=== PATIENT | female | born 2000 | race Two or more races ===

== ENCOUNTER 2022-10-01 10:16 | Emergency (ER) | payer OTHER ==
[~2022-10-01] VITALS: Ht 160 cm; Wt 52.2 kg
== END 2022-10-01 11:04 | disposition home or self-care (01) ==
LOC: ER 10:16
DX: N63.10 Unspecified lump in the right breast, unspecified quadrant (principal); B35.9 Dermatophytosis, unspecified; Z88.0 Allergy status to penicillin

== ENCOUNTER 2022-11-09 19:38 | Emergency (ER) | payer OTHER ==
[~2022-11-09] VITALS: Ht 167.6 cm; Wt 52.2 kg
[2022-11-10] MEDS ORDERED: MACRODANTIN100 M1 PO (02:44)
[2022-11-10] MEDS ORDERED: ZOFRAN8 MG PO (02:44)
== END 2022-11-10 03:05 | disposition home or self-care (01) ==
LOC: ER 19:38
DX: O21.8 Other vomiting complicating pregnancy (principal); Z3A.09 9 weeks gestation of pregnancy; Z88.0 Allergy status to penicillin